=== PATIENT | female | born 1990 | race Caucasian/White ===

== ENCOUNTER 2017-01-07 23:02 | Inpatient (IN) | payer OTHER ==
[2017-01-07] MEDS ORDERED: PENICILLIN G POTASSIUM 5,000,000 UNIT in DEXTROSE 5% IN WATER 100 ML IV STA ×2 (23:20)
[2017-01-07] MEDS ORDERED: TERBUTALINE 1 MG/ML VIAL SQ PRN (23:20)
[2017-01-07] MEDS ORDERED: METHYLERGONOVINE 0.2 MG/ML 1 ML AMP IM PRN (23:20)
[2017-01-07] MEDS ORDERED: CARBOPROST TROMETHAMINE 250 MCG/ML 1 ML AMP IM PRN (23:20)
[2017-01-07] MEDS ORDERED: OXYTOCIN 10 UNIT/ML 1 ML VIAL IM PRN (23:20)
[2017-01-07] MEDS ORDERED: LIDOCAINE 1% (PF) 10 MG/ML (30 ML SDV) SQ PRN (23:20)
[2017-01-07] MEDS ORDERED: LACTATED RINGERS 1,000 ML IV SCH (23:30)
[2017-01-07 23:34] VITALS: RESP 16
--- NOTE | 2017-01-08 00:05 | P.HPOB ---
History of Present Illness H&P Date: 01/07/17 Chief Complaint: Labor at 39-2/7 weeks' This is a 26-year-old 3 para 2001 woman with an estimated due date of based on LMP, who presents at 39-2/7 weeks' gestation in spontaneous active labor. She reports increasing mucus vaginal discharge over the last 18 hours. She is having strong contractions that are becoming closer together over the last several hours. Upon initial presentation to labor and delivery triage she was found to be 7+ centimeters dilated with bulging membranes. She denies vaginal bleeding. has been uncomplicated. Obstetric history is significant for 37 week vaginal delivery in 2012, uncomplicated and a 37 week vaginal delivery in 2016 of female infant with a congenital diaphragmatic hernia who unfortunately at 3 weeks of age. Ultrasound evaluation on of this appears normal. Laboratory data: Group B strep positive, blood type A+, antibody screen negative , rubella immune, VDRL nonreactive, hepatitis B surface antigen negative, HIV negative, nuchal's tolerance testing within normal limits. Review of Systems All systems: negative Past Medical History Past Medical History: No Reported History History of Any Multi-Drug Resistant Organisms: None Reported Past Surgical History: Tonsillectomy Past Anesthesia/Blood Transfusion Reactions: No Reported Reaction Past Psychological History: No Psychological Hx Reported Smoking Status: Current every day smoker Past Alcohol Use History: None Reported Past Drug Use History: None Reported - Past Family History Father Family Medical History: Hypertension Sister(s) Family Medical History: Cancer Medications and Allergies Home Medications Medication Instructions Recorded Confirmed Type No Known Home Medications [No 01/07/17 01/07/17 History Known Home Medications] Allergies Allergy/AdvReac Type Severity Reaction Status Date / Time No Known Allergies Allergy Verified 01/07/17 23:19 Exam - Vital Signs Vital signs: Vital Signs Temp Pulse Resp BP 01/07/17 23:19 96.3 F L 113 H 16 127/70 Intake and Output 01/07/17 01/07/17 01/08/17 14:59 22:59 06:59 Other: Weight 96.162 kg Patient Weight 01/08/17 06:59 Weight 96.162 kg Physical exam is performed. Patient is actively laboring and visibly uncomfortable, female. On pelvic examination the cervix is 8 cm dilated with bulging membranes. Presenting part is not well engaged. While waiting for bedside ultrasound she had spontaneous rupture of clear fluid. Bedside ultrasound confirms vertex presentation. She was 8 cm dilated, 80% effaced and the vertex in the -2 station. heart tones are overall reassuring with some early in timing decelerations. She is having contractions every 2-4 minutes. Assessment and Plan (1) 39 weeks gestation of Status: Acute (2) Spontaneous onset of labor Status: Acute (3) Spontaneous rupture of membranes Status: Acute (4) Tobacco abuse Status: Acute Plan: This is a 26-year-old 3 para 2001 woman who presented in spontaneous active labor at 39-2/7 weeks' gestation. She is group B strep positive. Prophylactic antibiotics have been initiated. She did have spontaneous rupture of membranes. Anticipate spontaneous vaginal delivery.
[2017-01-08 00:12] LABS: Basophils % (A) 0 %; CH 29.4; CHCM 33.3; Eosinophils # (A) 0.1 k/uL (0-0.7); Eosinophils % (A) 1 %; HCT 40.1 % (34.0-46.0); HDW 3.62; HGB 13.4 gm/dL (11.4-16.0); Luc # (Auto) 0.21; Luc % (Auto) 1; Lymphocytes # (A) 1.8 k/uL (1.0-4.8); Lymphocytes % (A) 12 %; MCH 29.6 pg (25.0-35.0); MCHC 33.3 g/dL (31.0-37.0); MCV 88.9 fL (80.0-100.0); Mean Platelet Volume 8.5; Monocytes # (A) 0.6 k/uL (0-1.0); Monocytes % (A) 4 %; Neutrophils # (A) 12.7 k/uL (1.3-7.7); Neutrophils % (A) 82 %; Poikilocytosis Slight; RBC 4.51 m/uL (3.80-5.40); WBC 15.4 k/uL (3.8-10.6); WBC (Perox) 15.35
[2017-01-08] MEDS ORDERED: diphenhydrAMINE 50 MG/ML 1 ML VIAL IVP PRN ×2 (01:08)
[2017-01-08] MEDS ORDERED: diphenhydrAMINE 50 MG CAP PO PRN (01:08)
[2017-01-08] MEDS ORDERED: SIMETHICONE 80 MG CHEWABLE PO PRN (01:08)
[2017-01-08] MEDS ORDERED: BENZOCAINE SPRAY 57GM TOPICAL PRN (01:08)
[2017-01-08] MEDS ORDERED: diphenhydrAMINE 25 MG CAP PO PRN (01:08)
[2017-01-08] MEDS ORDERED: HYDROCORTISONE 2.5% RECTAL CREAM 30 GM TUBE RECTAL PRN (01:08)
[2017-01-08] MEDS ORDERED: ACETAMINOPHEN TAB 325 MG TAB PO PRN (01:08)
[2017-01-08] MEDS ORDERED: ZOLPIDEM 5 MG TAB PO PRN (01:08)
[2017-01-08] MEDS ORDERED: WITCH HAZEL 1 EACH MED..PAD TOPICAL PRN (01:08)
[2017-01-08] MEDS ORDERED: LANOLIN CREAM 5 GM TUBE TOPICAL PRN (01:08)
--- NOTE | 2017-01-08 01:08 | P.PROBDLV ---
Vaginal Delivery Note - . Vaginal Delivery Note: Findings: Female in the left occiput anterior position with a body cord 1. Apgars of 9 at 1 minute and 9 at 5 minutes weighing 6 lbs. 5 oz., 2855 g. Intact, three-vessel cord placenta. EBL approximately 200 and. Delivery summary: Mrs. Hinton-year-old 3 para 2000 woman who presented at 39 -2/7 weeks in spontaneous active labor. She was group B strep positive. She had spontaneous rupture of membranes shortly after admission. Group B strep prophylactic antibiotics were initiated. At the time of rupture of membranes at 2359, she was 8+ centimeters dilated. She reached complete cervical dilation by 0053. She was repositioned in the modified lithotomy position. She had a precipitous second stage of labor. With maternal effort 1 she delivered a liveborn female infant from the occiput anterior position with a body cord 1. Infant delivered rapidly and was placed on the maternal abdomen. The cord was clamped and cut. The nose and mouth were bulb suctioned immediately following delivery. Apgars were 9 at 1 minute and 9 at 5 minutes. Weight was 2855 g. An intact, three-vessel cord placenta was delivered after a 3 minute third stage of labor. The perineum and vagina were inspected and no lacerations were noted. The uterus was massaged and was noted to be firm below the level of the umbilicus. She received Pitocin following the third stage of labor. Both mother and infant were doing well post delivery in the room. All counts were correct.
[2017-01-08] MEDS ORDERED: OXYTOCIN 20 UNITS/1000 ML NS 1,000 ML IV SCH (01:15)
[2017-01-08] MEDS: IBUPROFEN 600 MG TAB PO PRN ×3 (02:46→21:05)
[2017-01-08] MEDS ORDERED: PENICILLIN G POTASSIUM 2,500,000 UNIT in DEXTROSE 5% IN WATER 100 ML IV SCH ×2 (04:00)
[2017-01-08] MEDS: SENNOSIDES-DOCUSATE SODIUM 1 EACH TAB PO SCH ×2 (11:46→20:03)
--- NOTE | 2017-01-09 08:53 | P.PNOBGVD ---
Subjective - Subjective Patient reports: Reports appetite normal, Reports voiding normally, Reports pain well controlled, Reports ambulating normally [place]: doing well Objective - Latest Vital Signs Latest vital signs: Vital Signs Temp Pulse Resp BP 01/09/17 08:00 97.9 F 57 L 16 124/62 01/09/17 00:00 97.9 F 60 16 101/55 01/08/17 16:00 97.9 F 84 16 115/66 01/08/17 12:00 97.9 F 75 16 114/62 - Exam Lungs: bilateral: normal Chest: Normal S1, Normal S2 Extremities: Present: normal Abdomen: Present: normal appearance, soft Uterus: Present: normal, firm Assessment and Plan (1) Normal spontaneous vaginal delivery Narrative/Plan: Continue routine care. Infant remains and special care nursery for ongoing prophylactic antibiotic treatment for group B strep. I have encouraged the patient ambulating the hallways at least 4 times daily. Current Visit: Yes Status: Acute Code(s): O80 - ENCOUNTER FOR FULL-TERM UNCOMPLICATED DELIVERY SNOMED Code(s): 15866566
[2017-01-09] MEDS: SENNOSIDES-DOCUSATE SODIUM 1 EACH TAB PO SCH (20:04)
[2017-01-09] MEDS: IBUPROFEN 600 MG TAB PO PRN (20:05)
--- NOTE | 2017-01-10 07:20 | P.DS ---
Providers Date of admission: 01/07/17 23:11 Expected date of discharge: 01/10/17 Attending physician: Franck Taylor Primary care physician: Laila Martínez - Discharge Diagnosis(es) (1) Normal spontaneous vaginal delivery Current Visit: Yes Status: Acute Hospital Course: The patient is a 26-year-old 3 para 2000 admitted at 39-2/7 weeks by good dating parameters in active labor. Her was entirely uncomplicated though she did have a history of a demise secondary to congenital diaphragmatic hernia. Group B strep status is positive. As result, she had antibiotic prophylaxis started. On labor and delivery, she underwent artificial rupture of membranes and made fairly rapid progress to complete. She pushed to a normal spontaneous vaginal delivery of a viable 6 lbs. 6 oz. baby boy with Apgars of 9 at 1 minute and 9 at 5 minutes. Her course was unremarkable with vital signs remaining stable and her temperature was afebrile throughout. The was kept in the special care nursery for prophylactic antibiotics based upon his initial labs and lack of adequate antibiotic prophylaxis from a time perspective. The patient was deemed stable for discharge on day #2 was discharged home to follow-up in the office in 6 weeks' time routinely. Discharge instructions included calling for any significantly increased bleeding or foul-smelling lochia, significantly increased fever or abdominal pain, perineal complaints, breast complaints, or anything else that concerned her. She was additionally instructed to have nothing in the vagina for at least 6 weeks time to include intercourse. She understood her instructions and agrees to follow up as noted above. Discharge medications included only [id number] analgesic pain medications as needed. Maternal blood type is A+ and rubella status is immune. Procedures: #1. Antibiotic prophylaxis #2. Artificial rupture of membranes #3. Normal spontaneous vaginal delivery Patient Condition at Discharge: Good Plan - Discharge Summary New Discharge Prescriptions: No Action No Known Home Medications [No Known Home Medications] Discharge Medication List No Known Home Medications [No Known Home Medications] 01/07/17 [History] Follow up Appointment(s)/Referral(s): Franck Taylor MD [STAFF PHYSICIAN] - 6 Weeks Discharge Disposition: HOME SELF-CARE
[2017-01-10 07:57] VITALS: BP 125/68; PULSE 62; TEMP 97.9
[2017-01-10] MEDS: SENNOSIDES-DOCUSATE SODIUM 1 EACH TAB PO SCH (12:06)
== END 2017-01-10 12:00 | disposition home or self-care (01) | DRG 775 ==
LOC: FBPOP 23:02 → 4FBP 23:11
PROVIDERS: ADMIT Obstetrics & Gynecology; ATTEND Obstetrics & Gynecology
PROC: 10E0XZZ Delivery of Products of Conception, External Approach (ICD-10-PCS; principal; 2017-01-08)
DX: O99.824 Streptococcus B carrier state complicating childbirth (principal); O99.334 Smoking (tobacco) complicating childbirth; F17.200 Nicotine dependence, unspecified, uncomplicated; Z37.0 Single live birth; Z3A.39 39 weeks gestation of pregnancy
CPT/HCPCS: 85025; 88307

== ENCOUNTER 2017-03-12 09:05 | Day surgery (SDC) | payer OTHER ==
[2017-03-06 08:56] VITALS: BMI 34.7
--- NOTE | 2017-03-11 19:18 | HP ---
HISTORY OF PRESENT ILLNESS: The patient is a 26 year old, 3, para 3, 0 , 0, 2 admitted to the hospital for tubal ligation. She has requested the procedure and the consent had been documented in the office. She is recently and understands the permanent nature of the procedure as well as its failure rate. PAST MEDICAL HISTORY: None. SURGICAL HISTORY: Significant only for tonsillectomy in 1995, tubes in her ears in 1993, she had an oral surgery in 2014. There are no apparent anesthetic concerns. OBSTETRICAL HISTORY: 3, para 3, 0, 0, 2 with three term vaginal deliveries with one child not surviving secondary to a congenital anomaly. Current method of contraception is condoms until tubal ligation can be performed. Gynecological history is unremarkable with no history of any infections to include STDs. Family history is noncontributory. Social history: The patient is and she is a smoker of less than one pack per day. She denies any other social concerns. PHYSICAL EXAMINATION: Vital signs are stable and the patient is afebrile. In general, this is a well developed, well nourished, white female in no acute distress. Her heart has regular rhythm and rate without murmur. Her lungs are clear to auscultation bilaterally in all duncan. Her abdomen is nondistended , and has normal active bowel sounds, is soft, nontender, without any palpable masses, hepatosplenomegaly or any hernias. Her extremities without cyanosis, clubbing or edema and are nontender to palpation bilaterally. Pelvic examination demonstrates a normal external genitalia and BUS with normal vaginal mucosa and cervix to palpation. There is no cervical motion tenderness. Uterus is five weeks in size. Mid plane, mobile, nontender, normal shaped though it is very high in the pelvis. The adnexa are normal and nontender without mass bilaterally. ASSESSMENT AND PLAN: Undesired fertility. We did discuss multiple assisted but reversible methods of contraception which the patient declined. She has reaffirmed her desired to proceed with tubal ligation. The risks and complications of the procedure were discussed at length to include risk for bleeding, bleeding requiring transfusion, infection, and injury to local structures to specifically include the bowel, bladder and ureters. She has the risk and has agreed to proceed. We are scheduled for laparoscopic bilateral tubal occlusion using Filshie clips on the morning of March 12, 2017. [facility]
[~2017-03-12 09:05] MED LIST: DEXAMETHASONE SOD PHOSPHATE 10 MG/ML 1 ML VIAL IV ONE; HYDROmorphone 1 MG/ML 1 ML SYRINGE IVP PRN; LACTATED RINGERS 1,000 ML IV SCH; MIDAZOLAM 2 MG/2 ML VIAL IV PRN; ONDANSETRON 4 MG/2 ML VIAL IVP ONE; Pre Op ABX Message 1 EACH MISC MISCELLANE ONE; SCOPOLAMINE 1.5MG/72HR PATCH TRANSDERM ONE
[2017-03-12] MEDS ORDERED: LIDOCAINE 1% 20 ML VIAL (10MG/ML) FOR IV START INTRADERMA ONE (09:39)
[2017-03-12] MEDS ORDERED: Acetaminophen-Codeine 300-30mg TAB PO PRN ×2 (09:40)
[2017-03-12] MEDS ORDERED: KETOROLAC 30 MG/ML 1 ML VIAL IVP PRN (09:40)
[2017-03-12] MEDS ORDERED: HYDROmorphone (PF) 1 MG/ML ONE (09:40)
[2017-03-12] MEDS ORDERED: ROCURONIUM BROMIDE 10 MG/ML 10 ML VIAL IV ONE (09:40)
[2017-03-12] MEDS ORDERED: KETOROLAC 30 MG/ML 1 ML VIAL ONE (09:40)
[2017-03-12] MEDS ORDERED: IBUPROFEN 600 MG TAB PO PRN (09:40)
[2017-03-12] MEDS ORDERED: PROPOFOL 10 MG/ML 20 ML VIAL IV ONE (09:40)
[2017-03-12] MEDS ORDERED: NEOSTIGMINE 1 MG/ML 10 ML VIAL ONE (09:40)
[2017-03-12] MEDS ORDERED: diphenhydrAMINE 50 MG/ML 1 ML VIAL IVP PRN (09:40)
[2017-03-12] MEDS ORDERED: LIDOCAINE 1% INJ 10MG/ML (20 ML MDV) ONE (09:40)
[2017-03-12] MEDS ORDERED: GLYCOPYRROLATE 0.2 MG/ML 2 ML VIAL ONE (09:40)
[2017-03-12] MEDS ORDERED: ONDANSETRON 4 MG/2 ML VIAL IVP PRN (09:40)
[2017-03-12] MEDS ORDERED: SUCCINYLCHOLINE CHLORIDE 100 MG/5 ML SYR IV ONE (09:40)
[2017-03-12] MEDS ORDERED: SIMETHICONE 80 MG CHEWABLE PO PRN (09:40)
[2017-03-12] MEDS ORDERED: METOCLOPRAMIDE 5 MG/ML 2 ML VIAL IVP PRN (09:40)
[2017-03-12] MEDS ORDERED: LACTATED RINGERS 1,000 ML IV SCH (09:45)
[2017-03-12] MEDS ORDERED: BUPIVACAINE (PF) 0.5% 30 ML VIAL SQ ONE (09:54)
--- NOTE | 2017-03-12 10:15 | P.OP ---
Date of Procedure: 03/12/17 Preoperative Diagnosis: #1. Status post normal spontaneous vaginal delivery #2. Undesired fertility Postoperative Diagnosis: Same Procedure(s) Performed: #1. Laparoscopic bilateral tubal occlusion with Filshie clips Implants: Anesthesia: YAAA Surgeon: Franck Taylor Estimated Blood Loss (ml): 5 IV fluids (ml): 700 Urine output (ml): 20 Pathology: none sent Condition: stable Disposition: PACU Indications for Procedure: Operative Findings: Preoperative pelvic examination demonstrated a 4-5 week anteverted mobile normal shaped uterus with normal adnexa bilaterally. Intraoperatively, the uterus, tubes, and ovaries were entirely normal to inspection. There was no evidence of endometriosis throughout the pelvis nor was there any other pathology identified. The appendix was noted to be normal though very long, proximally 6 cm in length. The liver and diaphragm appeared normal. A Filshie clip was placed firmly across the isthmic portion of the tube at approximately 2 -3 cm from the cornu on each side. Description of Procedure: The patient was prepped and draped in usual fashion after general endotracheal anesthesia was administered by the anesthesiologist. A speculum was placed in the anterior lip the cervix grasped with a single-tooth tenaculum after draining the bladder approximate 20 mL of clear hector urine. An acorn cannula was placed and left in place for uterine manipulation. Attention was then turned to the abdomen where a half a centimeter incision was made in the vertical plane in a fold of the umbilicus allowing insertion of a 5 mm optical trocar under direct visualization without difficulty. A pneumoperitoneum was then established. The Trendelenburg positioning was employed and a site was selected approximately 4 cm above the pubic symphysis in the midline where a roughly 8 mm incision was made in the transverse plane allowing insertion of an 8 mm trocar under direct visualization without difficulty. The blunt probe and Trendelenburg positioning were utilized to sweep the bowel from the pelvis. The findings are as noted above. The probe was replaced with a Filshie clip applicator which was utilized to place a Filshie clip firmly across the fallopian tube in the isthmic portion approximately 2-3 cm from the cornu on each side. The Filshie clip applicator was replaced the probe and the remainder of the abdomen was explored with the findings as noted above. Once it was certain that there was no pathology present, the instrumentation was removed and the pneumoperitoneum drained through both trocar sites. The trochars were then removed and the incisions closed with interrupted subcuticular stitches of 4-0 Vicryl followed by a Band-Aid. Each incision was infused with approximate 5 mL of half percent Marcaine without epinephrine. Estimated blood loss for the case was less than 5 mL. There are no complications. All sponge, instrument, and needle counts were correct. The patient tolerated the procedure well and proceeded to the recovery room in stable condition.
[2017-03-12] MEDS ORDERED: MIDAZOLAM 2 MG/2 ML VIAL IVP ONE (10:25)
[2017-03-12] MEDS ORDERED: LACTATED RINGERS 1,000 ML IV ONE (10:32)
[2017-03-12 10:36] VITALS: TEMP 98.2
[2017-03-12] MEDS ORDERED: HYDROmorphone 1 MG/ML 1 ML SYRINGE IVP ONE ×2 (10:42→10:47)
[2017-03-12 13:13] VITALS: RESP 18
[2017-03-12 14:25] VITALS: BP 99/60; PULSE 62
== END 2017-03-12 14:45 | disposition home or self-care (01) ==
LOC: OR 09:05
PROVIDERS: ATTEND Obstetrics & Gynecology
DX: Z30.2 Encounter for sterilization (principal); F17.200 Nicotine dependence, unspecified, uncomplicated
CPT/HCPCS: 81025; 58671; J2250; J2710; J2001; J1885; J1170; J0330; J2704